=== PATIENT | female | born 1970 | race Caucasian/White ===

== ENCOUNTER 2017-04-27 19:48 | Emergency (ER) | payer OTHER ==
[~2017-04-27] VITALS: Ht 165.1 cm; Wt 62.9 kg
[~2017-04-27 19:48] MED LIST: ACET300T2 PO; BUPR300T2 PO; IBUP600T44 PO; LORA-749 PO; OXYC-57 PO; TRIA3AER NAE
[2017-04-27 19:51] VITALS: TEMP 37.4; Ht 165.1 cm; Wt 62.9 kg
[2017-04-27] MEDS ORDERED: ALBUTEROL 0.5% NEB SOLN 2.5 MG/0.5 ML VIAL INH STA (20:19)
[2017-04-27] MEDS ORDERED: SODIUM CHLORIDE 0.9% 1000ML 1,000 ML IV STA (20:19)
[2017-04-27] MEDS ORDERED: ALBUTEROL HFA 8 GM INHALER INH STA (20:19)
[2017-04-27 20:25] VITALS: O2SAT 99
[2017-04-27 20:30] LABS: BASO % 0.1 %; BASO ABS # 0.01 K/uL (0-0.2); COMPLETE YES; EOS % 0.4 %; HEMATOCRIT 40.3 % (37-47); IG% 0.1 %; LYMPH % 21.1 %; LYMPH ABS # 1.71 K/uL (1.2-3.4); MEAN CELL VOLUME 94.8 fL (80-100); MEAN CORPUSCULAR HEMOGLOBIN 31.8 pg (25-34); MEAN CORPUSCULAR HGB CONC 33.5 g/dl (32-36); MEAN PLATELET VOLUME 10.1 fL (7.4-10.4); MONO % 7.5 %; NEUT % 70.8 %; PLATELET COUNT 235 K/uL (130-400); RED BLOOD COUNT 4.25 M/uL (4.2-5.4); WHITE BLOOD COUNT 8.11 K/uL (4.8-10.8)
[2017-04-27 20:37] LABS: ALT/SGPT 26 U/L (12-78); BLOOD UREA NITROGEN 9 mg/dl (7-18); BUN/CREATININE RATIO 10.8 (10-20); CARBON DIOXIDE 28 mmol/L (21-32); CHLORIDE 103 mmol/L (98-107); CREATININE 0.85 mg/dl (0.60-1.20); GLUCOSE 91 mg/dl (70-99); POTASSIUM 3.7 mmol/L (3.5-5.1); SODIUM 139 mmol/L (136-145)
[2017-04-27 20:47] LABS: ALKALINE PHOSPHATASE 52 U/L (45-117); AST/SGOT 16 U/L (15-37); CKMB/CK RATIO 1.4 (0-3.0)
--- NOTE | 2017-04-27 20:57 | DIAGNOSTIC IMAGING REPORT ---
CHEST ONE VIEW PORTABLE CLINICAL HISTORY: Pt c/o cough dyspnea COMPARISON STUDY: 09/26/2010 FINDINGS: The bones soft tissues and hemidiaphragms are normal. The cardiomediastinal silhouette is normal. The lungs are clear. The pulmonary vasculature is normal. IMPRESSION: Negative chest. Electronically signed by: Gopi Wheeler M.D. 04/27/2017 8:56 PM Dictated Date/Time: 04/27/2017 8:56 PM
[2017-04-27] MEDS ORDERED: AZITHROMYCIN 250 MG TAB PO STA (22:13)
[2017-04-27] MEDS ORDERED: HYCODAN 60ML BOTTLE HOMEPACK PO ONE (22:15)
[2017-04-27] MEDS ORDERED: HYDR5SYP11 PO (22:21)
[2017-04-27] MEDS ORDERED: AZIT-60 PO (22:21)
[2017-04-27 22:36] VITALS: BP 97/66; PULSE 106; O2SAT 97
[2017-04-27 22:36] LABS: INFLUENZA A PCR Neg for Influ A (NEG); INFLUENZA B PCR Neg for Influ B (NEG)
--- NOTE | 2017-04-27 23:58 | EMERGENCY ROOM VISIT NOTE ---
History Report prepared by Nghia: Ellen Madsen Under the Supervision of: Dr. Luis Cordova M.D. First contact with patient: 20:08 Chief Complaint: FLU LIKE SX Stated Complaint: FLU LIKE W/HEART FLUTTERING AND LIGHT HEADED History of Present Illness The patient is a 47 year old female who presents to the Emergency Room with complaints of persistent flu symptoms starting 1.5 weeks ago. Her symptoms started with heartburn and indigestion. She then started getting cold symptoms which have worsened throughout the week. She has been taking Claritin and Tylenol Cold. She had some fluttering in her chest. She is congested with a cough and clearing her throat often. She reports feeling lightheaded and dizzy. She feels warm at times which might be fever or hot flashes. She denies any history of smoking. She does not use inhalers at home. Source of History: patient Onset: 1.5 weeks ago Position: other (global) Quality: other (flu symptoms) Timing: other (persistent) Associated Symptoms: + fevers, + cough Note: Pt reports chest fluttering, lightheaded, dizzy, congestion, clearing throat. Review of Systems See HPI for pertinent positives & negatives. A total of 10 systems reviewed and were otherwise negative. Past Medical & Surgical Surgical Problems: (1) S/P appendectomy (2) S/P tubal ligation Family History Cancer Social History Smoking Status: Never Smoker Alcohol Use: occasionally Drug Use: none Marital Status: Occupation Status: employed Current/Historical Medications Scheduled Azithromycin (Zithromax), 250 MG PO DAILY Loratadine & Pseudoephedrine (Claritin-D 24 Hour), 1 TAB PO DAILY Scheduled PRN Hydrocodone W/ Homatropine (Hycodan 5/1.5MG 5 Ml), 5 ML PO HS PRN for Cough Allergies Coded Allergies: Sulfa Drugs (Verified Allergy, Unknown, 01/11/17) Physical Exam Vital Signs Date Time Temp Pulse Resp B/P (MAP) Pulse Ox O2 Delivery O2 Flow Rate FiO2 04/27/17 22:36 106 20 97/66 97 Room Air 04/27/17 22:35 84 04/27/17 21:50 103 20 97/66 96 04/27/17 20:31 99 104/73 120 123/83 04/27/17 20:25 99 Room Air 04/27/17 20:25 99 Room Air 04/27/17 20:18 107 04/27/17 19:51 37.4 115 20 113/75 99 Room Air Physical Exam GENERAL: Patient is a healthy-appearing well-nourished HEAD: Normocephalic atraumatic EYES: Ocular movements intact pupils equal and react to light OROPHARYNX mucous membranes are moist no exudates present no erythema or edema present NECK: Supple no nuchal rigidity CHEST: Good equal expansion LUNGS: Wheezing bilaterally to auscultation CARDIAC: Normal S1 and S2 ABDOMEN: Soft nontender no guarding BACK: No CVA tenderness EXTREMITIES: No pain upon palpation normal muscle strength in all groups no clubbing cyanosis or edema NEURO: Patient is following commands is answering questions appropriately. Alert and oriented x3 Cranial Nerves 2-12 grossly intact Medical Decision & Procedures ER Provider Diagnostic Interpretation: X-ray results as stated below per interpretation by me and the radiologist: CHEST ONE VIEW PORTABLE CLINICAL HISTORY: Pt c/o cough dyspnea COMPARISON STUDY: 09/26/2010 FINDINGS: The bones soft tissues and hemidiaphragms are normal. The cardiomediastinal silhouette is normal. The lungs are clear. The pulmonary vasculature is normal. IMPRESSION: Negative chest. Electronically signed by: Gopi Wheeler M.D. 04/27/2017 8:56 PM Dictated Date/Time: 04/27/2017 8:56 PM Laboratory Results 04/27/17 20:10 Red Blood Count 4.25, Mean Corpuscular Volume 94.8, Mean Corpuscular Hemoglobin 31.8, Mean Corpuscular Hemoglobin Concent 33.5, Mean Platelet Volume 10.1, Neutrophils (%) (Auto) 70.8, Lymphocytes (%) (Auto) 21.1, Monocytes (%) (Auto) 7.5, Eosinophils (%) (Auto) 0.4, Basophils (%) (Auto) 0.1, Neutrophils # (Auto) 5.74, Lymphocytes # (Auto) 1.71, Monocytes # (Auto) 0.61, Eosinophils # (Auto) 0.03, Basophils # (Auto) 0.01 04/27/17 20:10 Test 04/27/17 20:10 04/27/17 20:35 White Blood Count 8.11 K/uL (4.8-10.8) Red Blood Count 4.25 M/uL (4.2-5.4) Hemoglobin 13.5 g/dL (12.0-16.0) Hematocrit 40.3 % (37-47) Mean Corpuscular Volume 94.8 fL (80-100) Mean Corpuscular Hemoglobin 31.8 pg (25-34) Mean Corpuscular Hemoglobin Concent 33.5 g/dl (32-36) Platelet Count 235 K/uL (130-400) Mean Platelet Volume 10.1 fL (7.4-10.4) Neutrophils (%) (Auto) 70.8 % Lymphocytes (%) (Auto) 21.1 % Monocytes (%) (Auto) 7.5 % Eosinophils (%) (Auto) 0.4 % Basophils (%) (Auto) 0.1 % Neutrophils # (Auto) 5.74 K/uL (1.4-6.5) Lymphocytes # (Auto) 1.71 K/uL (1.2-3.4) Monocytes # (Auto) 0.61 K/uL (0.11-0.59) Eosinophils # (Auto) 0.03 K/uL (0-0.5) Basophils # (Auto) 0.01 K/uL (0-0.2) RDW Standard Deviation 44.0 fL (36.4-46.3) RDW Coefficient of Variation 12.7 % (11.5-14.5) Immature Granulocyte % (Auto) 0.1 % Immature Granulocyte # (Auto) 0.01 K/uL (0.00-0.02) Anion Gap 8.0 mmol/L (3-11) Est Creatinine Clear Calc Drug Dose 72.8 ml/min Estimated GFR () 93.9 Estimated GFR (Non- 81.0 BUN/Creatinine Ratio 10.8 (10-20) Calcium Level 9.0 mg/dl (8.5-10.1) Total Bilirubin 0.4 mg/dl (0.2-1) Direct Bilirubin < 0.1 mg/dl (0-0.2) Aspartate Amino Transf (AST/SGOT) 16 U/L (15-37) Alanine Aminotransferase (ALT/SGPT) 26 U/L (12-78) Alkaline Phosphatase 52 U/L (45-117) Total Creatine Kinase 87 U/L (26-192) Creatine Kinase MB 1.2 ng/ml (0.5-3.6) Creatine Kinase MB Ratio 1.4 (0-3.0) Troponin I < 0.015 ng/ml (0-0.045) Total Protein 7.3 gm/dl (6.4-8.2) Albumin 3.9 gm/dl (3.4-5.0) Thyroid Stimulating Hormone (TSH) 2.800 uIu/ml (0.300-4.500) Influenza Type A (RT-PCR) Neg for Influ A (NEG) Influenza Type A Antigen Neg for Influ A (NEG) Influenza Type B Antigen Neg for Influ B (NEG) Influenza Type B (RT-PCR) Neg for Influ B (NEG) Labs reviewed by ED physician. Medications Administered Medications (Trade) Dose Ordered Sig/Aubrie Route Start Time Stop Time Status Last Admin Dose Admin Sodium Chloride 1,000 ml @ 999 mls/hr Q1H1M STAT IV 04/27/17 20:19 04/27/17 21:19 DC 04/27/17 20:27 999 MLS/HR Albuterol Sulfate (Ventolin 0.5% 2.5MG/0.5ML Neb) 2.5 mg NOW STAT INH 04/27/17 20:19 04/27/17 20:21 DC 04/27/17 20:33 2.5 MG Albuterol (Ventolin Hfa Inhaler) 2 puffs NOW STAT INH 04/27/17 20:19 04/27/17 20:21 DC 04/27/17 20:33 2 PUFFS Azithromycin (Zithromax Tab) 500 mg NOW STAT PO 04/27/17 22:13 04/27/17 22:15 DC 04/27/17 22:35 500 MG Hydrocodone Bit/ Homatropine Methylb (Hycodan Elix Homepack 5/1.5MG/ 5ML) 1 homepack UD ONCE PO 04/27/17 22:15 04/27/17 22:16 DC 04/27/17 22:35 1 HOMEPACK ECG Indication: palpitations Rate (beats per minute): 105 Rhythm: sinus tachycardia Findings: no acute ischemic change, no ectopy ED Course 2015: Past medical records reviewed. The patient was evaluated in room B2. A complete history and physical examination was performed. 2019: Albuterol 2 puffs INH, Albuterol Sulfate 2.5 mg INH, NSS 1000 ml @ 999 mls /hr IV. 2213: Azithromycin 500 mg PO. 2215: Hydrocodone Bit/Homatropine Methylb 1 homepack PO. 2220: Upon reexamination the patient is resting comfortably. I discussed results and treatment plan with the patient. She verbalizes agreement and understanding. The patient is ready for discharge. Medical Decision Differential diagnosis: Etiologies such as infections, reactive airway disease, pneumonia, pneumothorax , COPD, CHF, cardiac ischemia, pulmonary embolism, musculoskeletal, gastrointestinal, as well as others were entertained.\ Medication Reconciliation: I attest that I have personally reviewed the patient' s current medication list Blood Pressure Screening: Patient was found to have normal blood pressure on screening and does not require follow up. This is a 47-year-old female who presents emergency department complaining of 10 days of URI-like symptoms. She does have slight wheezing on examination for this reason was given an albuterol breathing treatment along with an albuterol inhaler. She does not have any evidence of pneumonia on chest x-ray. She does not have an elevation in her white blood count cell count. As the patient's symptoms have been ongoing for the past 10 days and using shared medical decision-making both the patient and I are going to trial her on azithromycin. She was given Hycodan for her cough. I do feel that the patient is well enough that she can be discharged home for follow-up with her primary care physician. Patient was in agreement with the treatment plan. Impression Primary Impression: Acute bronchitis Scribe Attestation The scribe's documentation has been prepared under my direction and personally reviewed by me in its entirety. I confirm that the note above accurately reflects all work, treatment, procedures, and medical decision making performed by me. Departure Information Dispostion Home / Self-Care Prescriptions Hydrocodone W/ Homatropine (HYCODAN 5/1.5MG 5 ML) 1 Syp Syp 5 ML PO HS Y for Cough, #120 ML Prov: Luis Cordova MD 04/27/17 Azithromycin (ZITHROMAX) 250 Mg Tab 250 MG PO DAILY, #4 TAB Prov: Luis Cordova MD 04/27/17 Referrals No Doctor, Assigned Forms HOME CARE DOCUMENTATION FORM, IMPORTANT VISIT INFORMATION Patient Instructions Bronchitis Acute Dc, My [facility] Additional Instructions Use inhaler twice every 6 hours You have been examined and treated today on an emergency basis only. This is not a substitute for, or an effort to provide, complete comprehensive medical care. It is impossible to recognize and treat all injuries or illnesses in a single emergency department visit. It is therefore important that you follow up closely with your PCP. Call as soon as possible for an appointment. Thank you for your time and consideration. I look forward to speaking with you again soon. Please don't hesitate to call us if you have any questions. Problem Qualifiers Primary Impression: Acute bronchitis Bronchitis organism: unspecified organism Qualified Codes: J20.9 - Acute bronchitis, unspecified
== END 2017-04-27 22:55 | disposition home or self-care (01) ==
LOC: C.EDB 19:51
DX: J20.9 Acute bronchitis, unspecified (principal); R00.0 Tachycardia, unspecified; Z79.899 Other long term (current) drug therapy

== ENCOUNTER → 2018-06-18 | Outpatient (CLI) | payer OTHER ==
[~2018-06-18] MED LIST changes: -ACET300T2 PO; -BUPR300T2 PO; -IBUP600T44 PO; -OXYC-57 PO; -TRIA3AER NAE
--- NOTE | 2018-06-18 13:50 | DIAGNOSTIC IMAGING REPORT ---
LEFT ANKLE 3 VIEWS CLINICAL HISTORY: Foot deformity. Palpable "bony protrusion" below the medial malleolus. FINDINGS: 3 views of the left ankle are obtained. No prior studies are available for comparison at the time of dictation. The skeletal structures are well mineralized. No fracture is seen. The ankle mortise is intact. There is no joint effusion. A tiny plantar calcaneal enthesophyte is observed. An os trigonum is incidentally noted. The overlying soft tissues are within normal limits. IMPRESSION: No osseous abnormality is identified. Electronically signed by: Bari Li M.D. 06/18/2018 1:49 PM Dictated Date/Time: 06/18/2018 1:48 PM
--- NOTE | 2018-06-18 13:57 | DIAGNOSTIC IMAGING REPORT ---
L FOOT MIN 3 VIEWS ROUTINE CLINICAL HISTORY: Foot deformity pain COMPARISON: None. DISCUSSION: The bones and joint spaces appear intact. There is no evidence of fracture, dislocation or bony disease. There is no evidence for soft tissue swelling. IMPRESSION: Negative study. The above report was generated using voice recognition software. It may contain grammatical, syntax or spelling errors. Electronically signed by: Gopi Wheeler M.D. 06/18/2018 1:55 PM Dictated Date/Time: 06/18/2018 1:55 PM
[2018-06-18 17:27] LABS: BASO % 0.4 %; BASO ABS # 0.03 K/uL (0-0.2); EOS % 1.2 %; HEMOGLOBIN 13.8 g/dL (12.0-16.0); IG# 0.02 K/uL (0.00-0.02); LYMPH % 31.2 %; LYMPH ABS # 2.54 K/uL (1.2-3.4); MEAN CORPUSCULAR HEMOGLOBIN 31.9 pg (25-34); MEAN CORPUSCULAR HGB CONC 32.9 g/dl (32-36); MEAN PLATELET VOLUME 10.8 fL (7.4-10.4); MONO % 5.4 %; MONO ABS # 0.44 K/uL (0.11-0.59); NEUT % 61.6 %; PLATELET COUNT 302 K/uL (130-400); RED CELL DISTRIBUTION WIDTH CV 13.4 % (11.5-14.5); RED CELL DISTRIBUTION WIDTH SD 47.7 fL (36.4-46.3); WHITE BLOOD COUNT 8.13 K/uL (4.8-10.8)
[2018-06-18 17:52] LABS: ALKALINE PHOSPHATASE 53 U/L (45-117); ALT/SGPT 23 U/L (12-78); AST/SGOT 15 U/L (15-37); BLOOD UREA NITROGEN 14 mg/dl (7-18); CALCIUM 9.1 mg/dl (8.5-10.1); CARBON DIOXIDE 30 mmol/L (21-32); CHOLESTEROL 253 mg/dl (0-200); CREATININE 0.91 mg/dl (0.60-1.20); GLUCOSE 91 mg/dl (70-99); LDL CHOLESTEROL CALCULATED 142 mg/dl; POTASSIUM 4.3 mmol/L (3.5-5.1); SODIUM 138 mmol/L (136-145); TOTAL PROTEIN 7.2 gm/dl (6.4-8.2)
== END | disposition home or self-care (01) ==
LOC: C.RADPV 13:30
PROVIDERS: ATTEND Family Medicine
DX: Z00.00 Encounter for general adult medical examination without abnormal findings (principal); M21.969 Unspecified acquired deformity of unspecified lower leg